=== PATIENT | male | born 1975 | race Caucasian/White ===

== ENCOUNTER 2016-07-17 10:07 | Emergency (ER) | payer BC ==
[~2016-07-17] VITALS: Ht 167.6 cm; Wt 56.7 kg
--- NOTE | 2016-07-17 10:18 | NUR ---
Presents self to ed due to llq abdominal pain, aching/ sharp, x 15 hour with n/v. Pt is aa3, appears in no acute distress,. respiration even and unlabored,. skin is warm to touch and non diaphoretic/. afebrile. vss. will cont to monitor.
[2016-07-17 11:25] LABS: BASOPHILS % (AUTO) 0.1 % (0.0-2.0); HEMATOCRIT 47 % (39-51); HEMOGLOBIN 16.1 g/dL (13.5-17.5); LYMPHOCYTES # (AUTO) 0.5 /CMM (0.8-4.8); LYMPHOCYTES % (AUTO) 4.9 % (20.0-44.0); MEAN CORPUSCULAR HEMOGLOBIN 29 PG (26.0-33.0); MEAN CORPUSCULAR HGB CONC 34 g/dl (31.0-36.0); MEAN CORPUSCULAR VOLUME 85 fL (80-96); MONOCYTES # (AUTO) 0.6 /CMM (0.1-1.30); MONOCYTES % (AUTO) 5.7 % (2.0-12.0); NEUTROPHILS # (AUTO) 9.4 /CMM (1.8-8.9); NEUTROPHILS % (AUTO) 89.3 % (43.0-81.0); PLATELET COUNT (AUTO) 210 /CMM (150-450); RDW COEFFICIENT OF VARIATION 13.1 (11.5-15.0); WHITE BLOOD COUNT (AUTO) 10.6 K/uL (4.3-11.0)
[2016-07-17] MEDS ORDERED: IV SET PRIMARY 1 EA INFUS.SET MC ONE (11:25)
[2016-07-17] MEDS ORDERED: IV NS 0.9% 1,000 ML ONE (11:25)
[2016-07-17 11:30] LABS: CALCIUM, SERUM 9.6 mg/dL (8.5-10.1); CREATININE 1.1 mg/dL (0.6-1.3); POTASSIUM 3.6 mmol/L (3.5-5.1)
[2016-07-17] MEDS: IV NS 0.9% 1,000 ML BAG IV ONE (11:33)
[2016-07-17 11:36] LABS: ALBUMIN 4.6 g/dL (3.4-5.0); BILIRUBIN,TOTAL 0.7 mg/dL (0.2-1.0); TOTAL PROTEIN, SERUM 8.4 g/dL (6.4-8.2)
[2016-07-17 12:34] VITALS: BP 127/65
--- NOTE | 2016-07-17 12:44 | NUR ---
IV removed. Catheter intact and site benign. Pressure and 4x4 applied to site. No bleeding noted.Patient discharged to home in stable condition. Written and verbal after care instructions given. Patient verbalizes understanding of instruction.
== END 2016-07-17 12:45 | disposition home or self-care (01) ==
LOC: ER 10:09
DX: E86.0 Dehydration (principal)
CPT/HCPCS: 36415; 80053-TC; 83690-TC; 85025-TC; A4606; J7030; Z7610